=== PATIENT | male | born 1955 | race Caucasian/White ===

== ENCOUNTER → 2017-11-27 | Outpatient (CLI) | payer OTHER | END | disposition home or self-care (01) | LOC: RX STUDY 08:15 | DX: R13.14 Dysphagia, pharyngoesophageal phase (principal) ==

== ENCOUNTER 2018-11-01 10:42 | Outpatient (CLI) | payer OTHER | END 2018-11-01 10:52 | disposition home or self-care (01) | LOC: NUCLEAR 10:42 | DX: M85.80 Other specified disorders of bone density and structure, unspecified site (principal); M81.0 Age-related osteoporosis without current pathological fracture ==

== ENCOUNTER 2018-11-02 08:57 | Outpatient (CLI) | payer OTHER | END 2018-11-02 08:59 | disposition home or self-care (01) | LOC: TOM 08:57 | DX: M48.02 Spinal stenosis, cervical region (principal); M47.12 Other spondylosis with myelopathy, cervical region; M54.2 Cervicalgia ==

== ENCOUNTER 2019-10-29 08:05 | Outpatient (CLI) | payer OTHER | END 2019-10-29 08:16 | disposition home or self-care (01) | LOC: RX STUDY 08:05 | DX: M43.22 Fusion of spine, cervical region (principal); R13.14 Dysphagia, pharyngoesophageal phase ==

== ENCOUNTER 2023-02-09 08:04 | Outpatient (CLI) | payer OTHER | END 2023-02-09 08:48 | disposition home or self-care (01) | LOC: RX STUDY 08:04 | DX: R13.14 Dysphagia, pharyngoesophageal phase (principal) ==

== ENCOUNTER 2023-10-11 06:03 | Day surgery (SDC) | payer OTHER ==
[2023-10-04 09:22] LABS: HEMATOCRIT 40.5 % (39.0-48.0); HEMOGLOBIN 13.5 g/dL (13-16.00); MEAN CELL VOLUME 80.7 fL (80.0-100.00); MEAN CORPUSCULAR HEMOGLOBIN 26.9 pg (27.00-32.0); MEAN CORPUSCULAR HGB CONC 33.3 g/dl (32.0-36.0); PLATELET COUNT 318 K/uL (150-450); RED BLOOD COUNT 5.01 M/uL (4.00-6.00)
[2023-10-04 09:28] VITALS: BP 150/79
[2023-10-04 09:39] LABS: INR 1.1; PARTIAL THROMBOPLASTIN TIME 28.7 SECONDS (22.0-34.0); PROTHROMBIN TIME 11.9 SECONDS (9.0-11.5)
[2023-10-04 09:48] LABS: PH,URINE 7.5 (5.0-8.0); URINE APPEARANCE Clear; URINE BILIRRUBIN Negative (NEGATIVE); URINE BLOOD Negative; URINE COLOR Yellow; URINE KETONE Negative (NEGATIVE); URINE LEUKOCYTE Negative; URINE NITRATE Negative; URINE PROTEIN Trace (NEGATIVE)
[2023-10-04 09:53] LABS: URINE BACTERIA 17.6 uL (0.0-1933)
[2023-10-04 10:24] LABS: URINE CAST 0.15 uL (0.0-1.40); URINE GLUCOSE >=1000 MG/DL (NEGATIVE); URINE RBC 1.8 uL (0.0-20.8); URINE WBC 1.3 uL (0.0-23.2)
[2023-10-04 10:30] LABS: CALCIUM 10.5 mg/dL (8.5-10.1); CREATININE SERUM 1.03 mg/dL (0.70-1.30); GFR 71.6; POTASSIUM 4.18 mEq/L (3.5-5.1)
[~2023-10-11] VITALS: Ht 167.6 cm; Wt 84.4 kg
[~2023-10-11 06:03] MED LIST: AMLODIPINE BESY10 MG PO; ATORVASTATIN CA40 MG PO; CARAFATE1 GM PO; COZAAR100 MG PO; CYMBALTA30 MG PO; LIPOFEN150 MG PO; LYRICA225 MG PO; MELOXICAM15 MG PO; SYNJARDY 12.5-1 EACH PO; TIZANIDINE HCL4 M1 PO
[2023-10-11] MEDS ORDERED: CEFAZOLIN SODIUM 1,000 MG VIAL ONE (11:34)
== END 2023-10-11 15:55 | disposition home or self-care (01) ==
LOC: CIR.AMB 06:03
PROVIDERS: ATTEND Surgery Surgery of the Hand
DX: M67.843 Other specified disorders of tendon, right hand (principal); I10 Essential (primary) hypertension; E11.9 Type 2 diabetes mellitus without complications